=== PATIENT | male | born 1970 | race Caucasian/White ===

== ENCOUNTER → 2018-05-30 | Outpatient (CLI) | payer BC, MEDICARE ==
[2018-05-30 10:25] LABS: Basophils # (A) 0.1 k/uL (0-0.2); Basophils % (A) 1 %; Eosinophils # (A) 0.5 k/uL (0-0.7); Eosinophils % (A) 6 %; HCT 40.1 % (39.0-53.0); HGB 13.9 gm/dL (13.0-17.5); Lymphocytes # (A) 2.8 k/uL (1.0-4.8); Lymphocytes % (A) 33 %; MCHC 34.6 g/dL (31.0-37.0); MCV 92.5 fL (80.0-100.0); Mean Platelet Volume 7.2; Monocytes # (A) 0.3 k/uL (0-1.0); Monocytes % (A) 4 %; Neutrophils # (A) 4.4 k/uL (1.3-7.7); Neutrophils % (A) 54 %; Platelet Count 246 k/uL (150-450); RBC 4.34 m/uL (4.30-5.90); RDW 12.6 % (11.5-15.5); WBC 8.3 k/uL (3.8-10.6)
[2018-05-30 13:12] LABS: Erythrocyte Sedimentation Rate 16 mm/hr (0-15)
[2018-05-30 16:18] LABS: Albumin 4.2 g/dL (3.80-4.90); Albumin/Globulin Ratio 2.1 (1.60-3.17); Anion Gap 9.6 mmol/L (4.00-12.00); Calcium 9.1 mg/dL (8.7-10.3); Carbon Dioxide 26.4 mmol/L (21.6-31.8); Total Bilirubin 0.5 mg/dL (0.2-1.2); Total Protein 6.2 g/dL (6.2-8.2)
[2018-05-30 16:26] LABS: T4, Free (Free Thyroxine) 1.1 ng/dL (0.80-1.80)
[2018-05-30 16:56] LABS: Protein, Total 6.3 g/dL (6.2-8.2)
[2018-05-30 17:36] LABS: Hemoglobin A1C 5.4 % (4.0-6.0)
[2018-05-31 11:00] LABS: ANA Pattern Homogeneous
[2018-05-31 11:33] LABS: Albumin 3.65 g/dL (3.80-4.90); Gamma Globulin 0.85 g/dL (0.70-1.50)
[2018-06-01 10:57] LABS: Lyme IgG/IgM 0.4 Index
== END | disposition home or self-care (01) ==
LOC: LABWHC1 09:14
PROVIDERS: ATTEND Psychiatry & Neurology Neurology
DX: Z00.00 Encounter for general adult medical examination without abnormal findings (principal); G60.9 Hereditary and idiopathic neuropathy, unspecified; R20.1 Hypoesthesia of skin; E03.9 Hypothyroidism, unspecified; M79.672 Pain in left foot; M79.671 Pain in right foot
CPT/HCPCS: 36415; 80053; 82550; 82607; 83036; 84165; 84439; 84443; 85025; 85652; 86038; 86039; 86618

== ENCOUNTER → 2018-09-06 | Outpatient (CLI) | payer BC, MEDICARE ==
[2018-09-06 15:06] LABS: Basophils # (A) 0.1 k/uL (0-0.2); Basophils % (A) 1 %; Eosinophils # (A) 0.8 k/uL (0-0.7); Eosinophils % (A) 12 %; HCT 41.7 % (39.0-53.0); HGB 14.4 gm/dL (13.0-17.5); Lymphocytes # (A) 1.7 k/uL (1.0-4.8); Lymphocytes % (A) 26 %; MCH 31.2 pg (25.0-35.0); MCHC 34.4 g/dL (31.0-37.0); MCV 90.5 fL (80.0-100.0); Mean Platelet Volume 7.1; Monocytes # (A) 0.3 k/uL (0-1.0); Monocytes % (A) 5 %; Neutrophils # (A) 3.5 k/uL (1.3-7.7); Neutrophils % (A) 54 %; Platelet Count 214 k/uL (150-450); RBC 4.61 m/uL (4.30-5.90); RDW 13.3 % (11.5-15.5); WBC 6.5 k/uL (3.8-10.6)
[2018-09-06 19:11] LABS: Calcium 9.4 mg/dL (8.7-10.3); Magnesium 1.8 mg/dL (1.5-2.4)
== END ==
LOC: LABWHC1 14:50
PROVIDERS: ATTEND Family Medicine
DX: E03.9 Hypothyroidism, unspecified (principal); R60.0 Localized edema; Z79.899 Other long term (current) drug therapy
CPT/HCPCS: 36415; 80048; 83735; 83880; 85025

== ENCOUNTER → 2021-08-26 | Outpatient (CLI) | payer MEDICARE ==
--- NOTE | 2021-08-27 13:36 | CA ---
Stress Echo Report Feliz Link Age: 51 Gender: M : 1970 Exam Date: 08/26/2021 09:41 Exam Location: [facility] Ht (in): 72 Wt (lb): 310 Ordering Physician: Сергей Silva MD Referring Physician: Mahesh Plata Commercial Property Manager: CARLITA Technologist Yuliya Tripp RDCS Procedure CPT: Indication: E11.9, I10, R53.83 ICD-9 Codes: Rhythm: Patient History: Htn, DM Cardiac Medications: Medications in past 24 hours: Contrast: Lumason Stress Results Protocol: Ajay Total dose(mL): 5 Exercise Duration (min:sec): Max ST Depression (mm): Angina Score: Brennan Score: METS: 7.1 Resting HR: 102 Resting BP: 130 / 44 Peak HR: 153 Peak BP: 182 / 48 Max Predicted HR: 171 89 % Max Predicted HR Target HR: 145 Double Product: [id number] Stress Summary: BP Response: Reason for Termination: Pt Reached Target heart rate: No symptoms. Cardiac Symptoms: ECG Analysis Resting ECG: Stress ECG: Arrhythmia: Echo Analysis Resting Echo: Peak Echo Analysis: MEASUREMENTS (Male/Female) Normal Values CONCLUSIONS Good exercise tolerance Normal EKG response to exercise Technically difficult echocardiogram images. Cannot rule out wall motion abnormalities. Dr. Fidencio Hu MD (Electronically Signed) Final Date: 27 Aug 2021 13:35
== END | disposition home or self-care (01) ==
LOC: RADNMMAIN 09:12
PROVIDERS: ATTEND Family Medicine
DX: I10 Essential (primary) hypertension (principal); R53.83 Other fatigue; E11.9 Type 2 diabetes mellitus without complications
CPT/HCPCS: C8930; Q9950; 93351

== ENCOUNTER → 2022-11-17 | Day surgery (SDC) | payer MEDICARE ==
[2022-11-16 09:21] VITALS: BMI 42.0
[~2022-11-17] MED LIST: LACTATED RINGERS 1,000 ML IV SCH; PROPOFOL 10 MG/ML 20 ML VIAL IV ONE
[2022-11-17 08:32] VITALS: TEMP 97.5
[2022-11-17 08:53] LABS: Glucose,Whole Blood 117 mg/dL (70-110)
--- NOTE | 2022-11-17 08:58 | P.GSHP ---
History of Present Illness H&P Date: 11/17/22 Chief Complaint: Screening colonoscopy This a 52-year-old male presents today for screening colonoscopy. Patient denies a significant GI complaints. Past Medical History Past Medical History: Diabetes Mellitus, Hyperlipidemia, Hypertension, Pulmonary Embolus (PE) Additional Past Medical History / Comment(s): Hx PE 10 yrs ago after back surgery. History of Any Multi-Drug Resistant Organisms: None Reported Past Surgical History: Back Surgery, Orthopedic Surgery Additional Past Surgical History / Comment(s): Right leg surgery. Past Anesthesia/Blood Transfusion Reactions: No Reported Reaction Past Psychological History: No Psychological Hx Reported Smoking Status: Never smoker Past Alcohol Use History: Rare Past Drug Use History: None Reported - Past Family History Mother Family Medical History: No Reported History Medications and Allergies Home Medications Medication Instructions Recorded Confirmed Type Amitriptyline HCl 50 mg PO HS 11/16/22 11/16/22 History Atorvastatin [Lipitor] 20 mg PO DAILY 11/16/22 11/16/22 History HYDROcodone/APAP 10-325MG [[place] 1 tab PO Q8HR PRN 11/16/22 11/17/22 History 10-325] Pregabalin 200 mg PO BID 11/16/22 11/16/22 History hydroCHLOROthiazide 25 mg PO QAM 11/16/22 11/16/22 History lisinopriL [Prinivil] 10 mg PO QAM 11/16/22 11/16/22 History metFORMIN HCL 500 mg PO QAM 11/16/22 11/17/22 History Allergies Allergy/AdvReac Type Severity Reaction Status Date / Time No Known Allergies Allergy Verified 11/17/22 08:29 Surgical - Exam Vital Signs Temp Pulse Resp BP Pulse Ox 97.5 F L 82 20 133/65 92 L 11/17/22 08:30 11/17/22 08:30 11/17/22 08:30 11/17/22 08:30 11/17/22 08:30 - General well developed, well nourished, no distress - Eyes PERRL - ENT normal pinna - Neck no masses - Respiratory normal expansion - Cardiovascular Rhythm: regular - Abdomen Abdomen: soft, non tender Results - Labs Abnormal Lab Results - Last 24 Hours (Table) 11/17/22 Range/Units 08:51 POC Glucose (mg/dL) 117 H (70-110) mg/dL Assessment and Plan Assessment: We'll perform screening colonoscopy.
--- NOTE | 2022-11-17 09:14 | P.OP ---
Date of Procedure: 11/17/22 Preoperative Diagnosis: Screening colonoscopy Postoperative Diagnosis: Normal colon Procedure(s) Performed: Colonoscopy Anesthesia: MAC Surgeon: Jorge Garza Pathology: none sent Condition: stable Disposition: PACU Description of Procedure: The patient's placed on the endoscopy table in the lateral position. He received IV sedation. Digital rectal exam was performed. This revealed no abnormalities. Flexible colonoscope was then placed patient anus and passed throughout the entire in the right colon was a large amount liquid stool which limited the view of the mucosa. The visualized mucosa appeared normal. The scope was withdrawn. The hepatic flexure appeared normal. The transverse colon , descending colon and sigmoid colon appeared normal. Scope summer back the rectum this appeared normal. Scope withdrawn for patient.
[2022-11-17 09:44] VITALS: BP 152/81; PULSE 81; RESP 18
== END | disposition home or self-care (01) ==
LOC: ORWHC2ENDO 08:06
PROVIDERS: ATTEND Surgery
DX: Z12.11 Encounter for screening for malignant neoplasm of colon (principal); E78.5 Hyperlipidemia, unspecified; I10 Essential (primary) hypertension; E11.9 Type 2 diabetes mellitus without complications; Z86.711 Personal history of pulmonary embolism; Z98.890 Other specified postprocedural states; Z86.59 Personal history of other mental and behavioral disorders; Z79.84 Long term (current) use of oral hypoglycemic drugs; Z79.899 Other long term (current) drug therapy
CPT/HCPCS: 45378; J2704

== ENCOUNTER → 2022-11-25 | Outpatient (CLI) | payer MEDICARE ==
[2022-11-26 10:02] LABS: T4, Free (Free Thyroxine) 0.84 ng/dL (0.80-1.80)
== END | disposition home or self-care (01) ==
LOC: LABWHC1 14:46
PROVIDERS: ATTEND Family Medicine
DX: R79.89 Other specified abnormal findings of blood chemistry (principal)
CPT/HCPCS: 36415; 84439; 84443; 84481; 86800

== ENCOUNTER 2023-08-26 16:42 | Emergency (ER) | payer MEDICARE ==
--- NOTE | 2023-08-26 16:52 | ED ---
General Adult HPI - General Chief complaint: Shortness of Breath Stated complaint: palpitations Time Seen by Provider: 08/26/23 16:51 Source: patient, EMS Mode of arrival: EMS Limitations: no limitations - History of Present Illness Initial comments: Patient presents to the ED by ambulance for evaluation with his brother at bedside. Patient states that his mother is on a liver transplant list, and he states that he spent all night with her last night at [facility]. Patient states that he just got home from the hospital this morning, and he states that he has felt anxious and has been under a lot of stress. Patient states that he has had rapid heart palpitations and dyspnea since this morning. Patient also admits to hyperventilating. Patient states that he developed carpal spasms earlier today as well. Patient also states that he was "dry heaving" earlier today, but he denies vomiting, he denies feeling nauseated currently. Patient denies having any pain, fever or chills, headache, focal neuro deficit, chest pain or pressure, cough or cold symptoms, dizziness, syncope, abdominal pain, vomiting or diarrhea, bloody or melanotic stool, dysuria or urinary symptoms, leg or calf swelling or pain, or any other symptoms or complaints. Patient denies alcohol use. Patient denies any illicit drug use besides an occasional THC gummy. - Related Data Home Medications Medication Instructions Recorded Confirmed Atorvastatin [Lipitor] 20 mg PO DAILY 11/16/22 08/26/23 Pregabalin 200 mg PO BID 11/16/22 08/26/23 hydroCHLOROthiazide 25 mg PO DAILY 11/16/22 08/26/23 lisinopriL [Prinivil] 10 mg PO DAILY 11/16/22 08/26/23 metFORMIN HCL 500 mg PO W/BRKFST 11/16/22 08/26/23 Amitriptyline HCl [Elavil] 100 mg PO HS 08/26/23 08/26/23 Hydrocodone/Acetaminophen 1 tab PO TID PRN 08/26/23 08/26/23 [Hydrocodone/Acetaminophen 10-300 mg] Levothyroxine Sodium [Synthroid] 75 mcg PO DAILY 08/26/23 08/26/23 Multivitamins, Thera [Multivitamin 1 tab PO DAILY 08/26/23 08/26/23 (formulary)] Allergies Allergy/AdvReac Type Severity Reaction Status Date / Time No Known Allergies Allergy Verified 08/26/23 19:48 Review of Systems ROS Statement: Those systems with pertinent positive or pertinent negative responses have been documented in the HPI. ROS Other: All systems not noted in ROS Statement are negative. Past Medical History Past Medical History: Diabetes Mellitus, Hyperlipidemia, Hypertension, Pulmonary Embolus (PE) Additional Past Medical History / Comment(s): Hx PE 10 yrs ago after back surgery. History of Any Multi-Drug Resistant Organisms: None Reported Past Surgical History: Back Surgery, Orthopedic Surgery Additional Past Surgical History / Comment(s): Right leg surgery. Past Anesthesia/Blood Transfusion Reactions: No Reported Reaction Past Psychological History: No Psychological Hx Reported Smoking Status: Never smoker Past Alcohol Use History: Rare Past Drug Use History: None Reported - Past Family History Mother Family Medical History: No Reported History General Exam Limitations: no limitations General appearance: alert Head exam: Present: normocephalic Eye exam: Present: normal appearance, PERRL, EOMI ENT exam: Present: mucous membranes moist Neck exam: Present: other (Trachea is in midline) Respiratory exam: Present: normal lung sounds bilaterally. Absent: respiratory distress, wheezes, rales, rhonchi, stridor Cardiovascular Exam: Present: regular rate, normal rhythm, normal heart sounds, other (Normal radial pulses bilaterally) GI/Abdominal exam: Present: soft. Absent: tenderness, guarding Extremities exam: Present: other (Negative Homans' sign bilaterally). Absent: tenderness, pedal edema, calf tenderness Neurological exam: Present: alert, oriented X3, CN II-XII intact. Absent: motor sensory deficit Psychiatric exam: Present: anxious Skin exam: Present: warm, dry, normal color Course Vital Signs 08/26/23 08/26/23 16:45 20:28 Temperature 98.4 F Pulse Rate 73 77 Respiratory 18 18 Rate Blood Pressure 121/62 99/76 O2 Sat by Pulse 98 98 Oximetry - Reevaluation(s) Reevaluation #1: 08/26/23 20:54 Patient states that his symptoms have all now improved. Patient remains alert and breathing comfortably with a normal room air oxygen saturation. Patient and brother are aware of the patient's test results and patient feels comfortable being discharged home at this time. Patient was counseled about anxiety, dyspnea and palpitations. He was clearly explained return and follow-up instructions. He was instructed to follow-up closely with his primary care provider. He feels comfortable with this plan. EKG Findings - EKG Comments: EKG Findings:: ED physician interpretation (interpreted by me): Normal sinus rhythm, ventricular rate of 63 bpm, no ectopy, normal [place] and QRS intervals, normal QT interval, incomplete right bundle branch block, no ST or T wave abnormality, normal axis Medical Decision Making - Medical Decision Making Was pt. sent in by a medical professional or institution (, PA, [employer], urgent care, hospital, or retirement...) When possible be specific @ -No Did you speak to anyone other than the patient for history (EMS, parent, family, police, friend...)? What history was obtained from this source @ -No Did you review nursing and triage notes (agree or disagree)? Why? @ -I reviewed and agree with nursing and triage notes Were old charts reviewed (outside hosp., previous admission, EMS record, old EKG, old radiological studies, urgent care reports/EKG's, retirement records)? Report findings @ -No old charts were reviewed Differential Diagnosis (chest pain, altered mental status, abdominal pain women, abdominal pain men, vaginal bleeding, weakness, fever, dyspnea, syncope, headache, dizziness, GI bleed, back pain, seizure, CVA, palpatations, mental health, musculoskeletal)? @ -Differential Palpitations Arrhythmia,, myocardial infarction, anemia, thyrotoxicosis, electrolyte imbalanc e, hypokalemia, dyspnea, COPD, asthma, CHF, pleural effusion, drugs, alcohol, anxiety, stress.... This is not meant to be an all-inclusive list. EKG interpreted by me (3pts min.). @ -As above X-rays interpreted by me (1pt min.). @ -Chest x-ray was reviewed myself and shows no acute pulmonary abnormality. I agree with the radiologist's interpretation as above. CT interpreted by me (1pt min.). @ -None done U/S interpreted by me (1pt. min.). @ -None done What testing was considered but not performed or refused? (CT, X-rays, U/S, labs)? Why? @ -None What meds were considered but not given or refused? Why? @ -None Did you discuss the management of the patient with other professionals (prof melba [email or web address]. , PA, [employer], lab, RT, psych nurse, community mental health social worker, door and arrival attendant, teacher, chief science officer, correctional case records supervisor)? Give summary @ -No Was smoking cessation discussed for >3mins.? @ -No Was critical care preformed (if so, how long)? @ -No Were there social determinants of health that impacted care today? How? (Homelessness, low income, unemployed, alcoholism, drug addiction, transportation, low edu. Level, literacy, decrease access to med. care, mcc, rehab)? @ -No Was there de-escalation of care discussed even if they declined (Discuss DNR or withdrawal of care, Hospice)? DNR status @ -No What co-morbidities impacted this encounter? (DM, HTN, Smoking, COPD, CAD, Cancer, CVA, ARF, Chemo, Hep., AIDS, mental health diagnosis, sleep apnea, morbid obesity)? @ -None Was patient admitted / discharged? Hospital course, mention meds given and route, prescriptions, significant lab abnormalities, going to OR and other pertinent info. @ -Patient presented to the ED reporting symptoms of stress and anxiety. Patient reported having carpal spasms earlier today. Patient has been treated with IV Ativan in the ED, and he states that his symptoms have all now improved. Patient's troponin is negative. Patient's labs are otherwise fairly unremarkable. Patient's EKG is also fairly unremarkable, as is the patient's chest x-ray. Patient was counseled about his symptoms, and he was clearly e xplained return and follow-up instructions. Will discharge patient home at this time. Patient feels comfortable with this plan. Undiagnosed new problem with uncertain prognosis? @ -No Drug Therapy requiring intensive monitoring for toxicity (Heparin, Nitro, Insulin, Cardizem)? @ -No Were any procedures done? @ -No Diagnosis/symptom? @ -Anxiety, dyspnea, palpitations Acute, or Chronic, or Acute on Chronic? @ -Acute Uncomplicated (without systemic symptoms) or Complicated (systemic symptoms)? @ -Default Side effects of treatment? @ -No Exacerbation, Progression, or Severe Exacerbation? @ -No Poses a threat to life or bodily function? How? (Chest pain, [place], [place], pneumonia, PE, COPD, DKA, ARF, appy, cholecystitis, CVA, Diverticulitis, Homicidal, Suicidal, threat to staff... and all critical care pts) @ -No - Lab Data Result diagrams: 08/26/23 18:01 08/26/23 18:01 Lab Results 08/26/23 08/26/23 08/26/23 Range/Units 18:01 18:01 18:01 WBC 5.2 (3.8-10.6) k/uL RBC 3.62 L (4.30-5.90) m/uL Hgb 12.0 L (13.0-17.5) gm/dL Hct 34.2 L (39.0-53.0) % MCV 94.7 (80.0-100.0) fL MCH 33.2 (25.0-35.0) pg MCHC 35.1 (31.0-37.0) g/dL RDW 13.0 (11.5-15.5) % Plt Count 135 L (150-450) k/uL MPV 8.4 Neutrophils % 69 % Lymphocytes % 20 % Monocytes % 7 % Eosinophils % 2 % Basophils % 0 % Neutrophils # 3.6 (1.3-7.7) k/uL Lymphocytes # 1.1 (1.0-4.8) k/uL Monocytes # 0.3 (0-1.0) k/uL Eosinophils # 0.1 (0-0.7) k/uL Basophils # 0.0 (0-0.2) k/uL PT 12.8 H (10.0-12.5) sec INR 1.2 H (<1.2) APTT 25.7 (22.0-30.0) sec Sodium 140 (137-145) mmol/L Potassium 3.9 (3.5-5.1) mmol/L Chloride 113 H (98-107) mmol/L Carbon Dioxide 22 (22-30) mmol/L Anion Gap 5 mmol/L BUN 17 (9-20) mg/dL Creatinine 0.83 (0.66-1.25) mg/dL Est GFR (CKD-EPI)AfAm >90 (>60 ml/min/1.73 sqM) Est GFR (CKD-EPI)NonAf >90 (>60 ml/min/1.73 sqM) Glucose 85 (74-99) mg/dL Calcium 8.8 (8.4-10.2) mg/dL Magnesium 1.9 (1.6-2.3) mg/dL Total Bilirubin 1.8 H (0.2-1.3) mg/dL AST 59 (17-59) U/L ALT 27 (4-49) U/L Alkaline Phosphatase 88 (38-126) U/L Troponin I (0.000-0.034) ng/mL NT-Pro-B Natriuret Pep 820 pg/mL Total Protein 6.0 L (6.3-8.2) g/dL Albumin 3.3 L (3.5-5.0) g/dL TSH 3.700 (0.465-4.680) mIU/L 08/26/23 Range/Units 18:01 WBC (3.8-10.6) k/uL RBC (4.30-5.90) m/uL Hgb (13.0-17.5) gm/dL Hct (39.0-53.0) % MCV (80.0-100.0) fL MCH (25.0-35.0) pg MCHC (31.0-37.0) g/dL RDW (11.5-15.5) % Plt Count (150-450) k/uL MPV Neutrophils % % Lymphocytes % % Monocytes % % Eosinophils % % Basophils % % Neutrophils # (1.3-7.7) k/uL Lymphocytes # (1.0-4.8) k/uL Monocytes # (0-1.0) k/uL Eosinophils # (0-0.7) k/uL Basophils # (0-0.2) k/uL PT (10.0-12.5) sec INR (<1.2) APTT (22.0-30.0) sec Sodium (137-145) mmol/L Potassium (3.5-5.1) mmol/L Chloride (98-107) mmol/L Carbon Dioxide (22-30) mmol/L Anion Gap mmol/L BUN (9-20) mg/dL Creatinine (0.66-1.25) mg/dL Est GFR (CKD-EPI)AfAm (>60 ml/min/1.73 sqM) Est GFR (CKD-EPI)NonAf (>60 ml/min/1.73 sqM) Glucose (74-99) mg/dL Calcium (8.4-10.2) mg/dL Magnesium (1.6-2.3) mg/dL Total Bilirubin (0.2-1.3) mg/dL AST (17-59) U/L ALT (4-49) U/L Alkaline Phosphatase (38-126) U/L Troponin I <0.012 (0.000-0.034) ng/mL NT-Pro-B Natriuret Pep pg/mL Total Protein (6.3-8.2) g/dL Albumin (3.5-5.0) g/dL TSH (0.465-4.680) mIU/L - Radiology Data Chest x-ray: No acute pulmonary process. Disposition Clinical Impression: Anxiety, Dyspnea, Palpitations Disposition: HOME SELF-CARE Condition: Stable Instructions (If sedation given, give patient instructions): Heart Palpitations (ED), Dyspnea (ED), Anxiety (ED) Additional Instructions: Return to the ER immediately should you develop increased shortness of breath, chest pain, feeling dizzy or faint, or new or worsening symptoms. Follow-up closely with your primary care provider. Is patient prescribed a controlled substance at d/c from ED?: No Referrals: Сергей Silva MD [Primary Care Provider] - 1-2 days Time of Disposition: 20:55
[2023-08-26 17:25] VITALS: RESP 18
[2023-08-26] MEDS: LORazepam 2 MG/ML INJ IV STA (17:59)
[2023-08-26] MEDS: SODIUM CHLORIDE 0.9% 500 ML 500 ML IV ONE (17:59)
--- NOTE | 2023-08-26 18:21 | XR ---
EXAMINATION TYPE: XR chest 2V DATE OF EXAM: 08/26/2023 COMPARISON: 20 INDICATION: Difficulty breathing and shortness breath TECHNIQUE: Frontal and lateral views of the chest are obtained. FINDINGS: The heart size is normal. The pulmonary vasculature is normal. The lungs are clear. IMPRESSION: 1. No acute pulmonary process.
[2023-08-26 18:32] LABS: Basophils % (A) 0 %; Eosinophils # (A) 0.1 k/uL (0-0.7); Eosinophils % (A) 2 %; HCT 34.2 % (39.0-53.0); Lymphocytes # (A) 1.1 k/uL (1.0-4.8); Lymphocytes % (A) 20 %; MCH 33.2 pg (25.0-35.0); MCHC 35.1 g/dL (31.0-37.0); MCV 94.7 fL (80.0-100.0); Mean Platelet Volume 8.4; Monocytes # (A) 0.3 k/uL (0-1.0); Monocytes % (A) 7 %; Neutrophils # (A) 3.6 k/uL (1.3-7.7); Neutrophils % (A) 69 %; Platelet Count 135 k/uL (150-450); RBC 3.62 m/uL (4.30-5.90); WBC 5.2 k/uL (3.8-10.6)
[2023-08-26 18:37] LABS: ALT 27 U/L (4-49); African American GFR (CKD) >90 (>60 ml/min/1.73 sqM); Albumin 3.3 g/dL (3.5-5.0); Anion Gap 5 mmol/L; Blood Urea Nitrogen 17 mg/dL (9-20); Calcium 8.8 mg/dL (8.4-10.2); Carbon Dioxide 22 mmol/L (22-30); Chloride 113 mmol/L (98-107); Glucose 85 mg/dL (74-99); Non-African American GFR(CKD) >90 (>60 ml/min/1.73 sqM); Sodium 140 mmol/L (137-145); Total Bilirubin 1.8 mg/dL (0.2-1.3)
[2023-08-26 18:38] LABS: INR 1.2 (<1.2); Partial Thromboplastin Time 25.7 sec (22.0-30.0); Prothrombin Time 12.8 sec (10.0-12.5)
[2023-08-26 18:46] LABS: NT-Pro-B-Type Natriuretic Pept 820 pg/mL
[2023-08-26 18:51] LABS: Magnesium 1.9 mg/dL (1.6-2.3); Potassium 3.9 mmol/L (3.5-5.1)
[2023-08-26 18:52] LABS: AST 59 U/L (17-59); Alkaline Phosphatase 88 U/L (38-126)
[2023-08-26 22:19] VITALS: BP 107/95; PULSE 75; TEMP 98.2
== END 2023-08-26 21:34 | disposition home or self-care (01) ==
LOC: EC 16:42
DX: F41.9 Anxiety disorder, unspecified (principal); I45.10 Unspecified right bundle-branch block
CPT/HCPCS: 36415; 93005; 83880; 80053; 83735; 84443; 84484; 85025; 85610; 85730; 71046; 99285; 96374; 96361 ×4; J2060

== ENCOUNTER → 2023-11-07 | Outpatient (CLI) | payer MEDICARE ==
--- NOTE | 2023-11-28 15:56 | US ---
Site ID [facility] Feliz Brice ID [id number] 1970 Age/Gender: 53Y, M Order # N/A Procedure US abdomen complete Date 11/07/2023 9:27:00 AM EXAMINATION TYPE: US abdomen complete DATE OF EXAM: 11/25/2023 COMPARISON: Ultrasound liver 08/23/2013 CLINICAL INDICATION: Male, 53 year old with history of abnormal urine color. TECHNIQUE: Multiple sonographic images of the abdomen are obtained. FINDINGS: EXAM MEASUREMENTS: Liver Length: 15.8 cm Gallbladder Wall: 0.3 cm CBD: 0.4 cm Spleen: 15.5 cm Right Kidney: 11.0 x 4.9 x 5.1 cm Left Kidney: 11.6 x 5.1 x 5.1 cm JAWBONE BREAKER NOTES: Limited examination due to patient body habitus Pancreas: wnl Liver: Attenuating, coarse echotexture Gallbladder: wnl Evidence for sonographic Mercer's sign: No CBD: wnl Spleen: Enlarged Right Kidney: wnl Left Kidney: wnl Upper IVC: wnl Abd Aorta: wnl The liver demonstrates diffuse increased attenuation with coarsened echotexture. No gross evidence of focal lesion within these limitations. No definitive surface nodularity. The intrahepatic portion of the IVC and proximal abdominal aorta are within normal limits. There is no evidence of cholelithias is. Common bile duct is unremarkable. The visualized portions of the pancreas are homogenous. The spleen is enlarged. Kidneys are symmetric and free of hydronephrosis. No renal lesions are seen. IMPRESSION: 1. Coarsened liver echotexture with increased attenuation. This is compatible with hepatocellular dis ease most, seen with hepatic steatosis. 2. Mild splenomegaly.
== END | disposition home or self-care (01) ==
LOC: RADUSWWP 09:00
PROVIDERS: ATTEND Family Medicine
DX: E03.9 Hypothyroidism, unspecified (principal); R16.1 Splenomegaly, not elsewhere classified; R39.89 Other symptoms and signs involving the genitourinary system; R74.01 Elevation of levels of liver transaminase levels; E11.69 Type 2 diabetes mellitus with other specified complication
CPT/HCPCS: 76700

== ENCOUNTER → 2024-02-05 | Outpatient (CLI) | payer MEDICARE ==
--- NOTE | 2024-02-05 13:04 | XR ---
EXAMINATION TYPE: XR Hip Bilateral Complete DATE OF EXAM: 02/05/2024 COMPARISON: NONE CLINICAL INDICATION: Male, 53 years old with history of BACK PAIN; TECHNIQUE: 2 views submitted FINDINGS: There is no evidence of erosive change or acute fracture. Mild hypertrophic change of the acetabulum. Tiny spur left greater trochanter. Tiny area of ossification adjacent to the right greater trochante r to small to characterize. IMPRESSION: 1. No evidence of acute fracture or dislocation. [facility], , 02/05/2024 1:01 PM
--- NOTE | 2024-02-05 13:06 | XR ---
EXAMINATION TYPE: XR lumbosacral spine min 4V DATE OF EXAM: 02/05/2024 12:58 PM COMPARISON: 06/20/2012 CLINICAL INDICATION: Male, 53 years old with history of BACK PAIN; TECHNIQUE: XR lumbosacral spine min 4V views are submitted. FINDINGS: Alignment is anatomic. The pedicles are intact. The transverse processes are intact. There is post surgical changes of the lumbosacral junction similar to prior exam. Multilevel facet arthropathy with grade 1 anterolisthesis L3-L4. Mild hypertrophic changes of the spine. Soft tissue ossifications pos terior soft tissues. Grade 1 retrolisthesis L1-2 and L2-3. Mild degenerative disc disease T11-T12. Va scular calcifications noted. IMPRESSION: 1. Postsurgical changes similar in appearance L5-S1. 2. Facet arthropathy most marked at L3-4 and L4-5. Foraminal encroachment in the differential diagnos is. [facility], , 02/05/2024 1:03 PM
[2024-02-05 20:09] LABS: Basophils # (A) 0.05 X 10*3/uL (0.00-0.10); Eosinophils # (A) 0.31 X 10*3/uL (0.04-0.35); Eosinophils % (A) 6.2 %; HCT 39.9 % (39.6-50.0); HGB 13.8 g/dL (13.0-17.0); Lymphocytes # (A) 1.09 X 10*3/uL (0.90-5.00); Lymphocytes % (A) 21.8 %; MCH 31.6 pg (27.0-32.0); MCHC 34.6 g/dL (32.0-37.0); MCV 91.3 FL (80.0-97.0); Mean Platelet Volume 11.3 FL (9.5-12.2); Monocytes # (A) 0.42 X 10*3/uL (0.20-1.00); Monocytes % (A) 8.4 %; NRBC Per 100 WBC 0 X 10*3/uL (0.00-0.01); Neutrophils # (A) 3.13 X 10*3/uL (1.80-7.70); Neutrophils % (A) 62.4 %; Platelet Count 149 X 10*3/uL (140-440); RBC 4.37 X 10*6/uL (4.40-5.60); RDW 12.4 % (11.5-14.5); WBC 5.01 X 10*3/uL (4.50-10.00)
[2024-02-05 21:11] LABS: Hepatitis B Surface Antigen Nonreactive (Nonreactive); Hepatitis C IgG Antibody Nonreactive (Nonreactive)
[2024-02-05 21:44] LABS: Ceruloplasmin 25.7 mg/dL (20.0-60.0)
[2024-02-05 23:31] LABS: % Iron Saturation 40.22 (15.00-50.00); ALT 32 U/L (10-49); AST 51 U/L (14-35); Albumin 4.2 g/dL (3.8-4.9); Albumin/Globulin Ratio 1.62 Ratio (1.60-3.17); Alkaline Phosphatase 98 U/L (41-126); BUN/Creat Ratio 13.27 Ratio (12.00-20.00); Blood Urea Nitrogen 14.6 mg/dL (9.0-27.0); Calcium 9.3 mg/dL (8.7-10.3); Carbon Dioxide 25.2 mmol/L (21.6-31.8); Chloride 101 mmol/L (96-109); Globulin 2.6 g/dL (1.6-3.3); Glucose 106 mg/dL (70-110); Iron 148 UG/DL (65-175); Potassium 3.6 mmol/L (3.5-5.5); Sodium 139 mmol/L (135-145); Total Bilirubin 1.2 mg/dL (0.3-1.2); Total Iron Binding Capacity 368 UG/DL (228-460); Total Protein 6.8 g/dL (6.2-8.2)
[2024-02-06 11:04] LABS: Smooth Muscle Antibody 36 UNITS (<20)
[2024-02-07 12:05] LABS: Albumin 4.03 g/dL (3.80-4.90); Gamma Globulin 1.01 g/dL (0.70-1.50); Protein, Total 6.8 g/dL (5.7-8.2)
== END | disposition home or self-care (01) ==
LOC: RADXRMAIN 12:28
PROVIDERS: ATTEND Internal Medicine Gastroenterology
DX: K76.0 Fatty (change of) liver, not elsewhere classified (principal); M47.816 Spondylosis without myelopathy or radiculopathy, lumbar region; Z98.890 Other specified postprocedural states; R74.8 Abnormal levels of other serum enzymes; D64.9 Anemia, unspecified
CPT/HCPCS: 72110; 73521; 80053; 81596; 82103; 82390; 82607; 82728; 82746; 83516; 83540; 83550; 84165; 85025; 86038; 86803; 87340

== ENCOUNTER → 2024-10-08 | Day surgery (SDC) | payer MEDICARE ==
[~2024-10-08] MED LIST changes: -LACTATED RINGERS 1,000 ML IV SCH; +LIDOCAINE 2% (PF) 20 MG/ML 5 ML VIAL ONE; +fentaNYL (PF) 50 MCG/ML 2 ML AMP ONE
[2024-10-08 08:36] VITALS: RESP 16; TEMP 98.3
[2024-10-08 08:44] LABS: Glucose,Whole Blood 102 mg/dL (70-110)
[2024-10-08] MEDS: LACTATED RINGERS 1,000 ML IV SCH (08:45)
[2024-10-08] MEDS: IV FLUID CONTINUATION 1,000 ML IV ONE (08:45)
--- NOTE | 2024-10-08 09:28 | P.PCN ---
Date of Procedure: 10/08/24 Procedure(s) Performed: BRIEF HISTORY: Patient is a 54-year-old, pleasant, white male scheduled for an upper endoscopy as a part of screening for esophageal varices. He was diagnosed with metabolic dysfunction associated steatotic liver disease with liver cirrhosis 2 months ago. PROCEDURE PERFORMED: Esophagogastroduodenoscopy with biopsy.. PREOPERATIVE DIAGNOSIS: History of liver cirrhosis/screening for esophageal varices. IV sedation per anesthesia. PROCEDURE: After informed consent was obtained, the patient was brought into the endoscopy unit. IV sedation was administered by Anesthesia under continuous monitoring. Initially the Olympus GIF-140 video endoscope was inserted into the mouth. Esophagus intubated without any difficulty. It was gradually advanced into the stomach and duodenum and carefully examined. The bulb and the second part of the duodenum appeared normal. The scope at this time was withdrawn to the stomach, adequately insufflated with air, and upon careful examination, mucosa of the antrum areas of erythema consistent with gastritis and biopsies were done from this area. Mucosa of the, body, cardia and the fundus appeared normal. The scope was then withdrawn into the esophagus. The GE junction was located at 44 cm from the incisors. There were linear erosions in the distal esophagus consistent with LA grade B reflux esophagitis. There were no esophageal varices identified. The rest of the esophagus appeared normal and the patient tolerated the procedure well. IMPRESSION: 1. No evidence of gastric or esophageal varices. 2. Mild antral gastritis 3. Linear erosions in the distal esophagus consistent with LA grade B reflux esophagitis. RECOMMENDATIONS: The findings of this examination were discussed with the patient as well as his family. He was advised to follow-up with the biopsy results.. Recommended repeat upper endoscopy in 2 to 3 years to screen for esophageal varices.
[2024-10-08 10:15] VITALS: BP 124/66; PULSE 82
== END ==
LOC: ORWHC2ENDO 08:11
PROVIDERS: ATTEND Internal Medicine Gastroenterology
DX: K74.60 Unspecified cirrhosis of liver (principal); K76.0 Fatty (change of) liver, not elsewhere classified; I10 Essential (primary) hypertension; E78.5 Hyperlipidemia, unspecified; E11.9 Type 2 diabetes mellitus without complications; E66.01 Morbid (severe) obesity due to excess calories; Z79.85 Long-term (current) use of injectable non-insulin antidiabetic drugs; Z79.84 Long term (current) use of oral hypoglycemic drugs; Z79.899 Other long term (current) drug therapy; Z68.42 Body mass index [BMI] 45.0-49.9, adult
CPT/HCPCS: 88305; 43239; J3010; J2704; J2003